=== PATIENT | male | born 1940 | race Two or more races ===

== ENCOUNTER 2021-08-14 09:05 | Emergency (ER) | payer MEDICAID, OTHER ==
[~2021-08-14] VITALS: Ht 162.6 cm; Wt 87.1 kg
[2021-08-14 09:51] VITALS: BP 142/69
[2021-08-14] MEDS ORDERED: CEPH500C PO (10:18)
[2021-08-14] MEDS ORDERED: CLOT1CRE13 VA (10:18)
== END 2021-08-14 10:50 | disposition home or self-care (01) ==
LOC: ER 09:05
DX: N48.1 Balanitis (principal); B37.9 Candidiasis, unspecified

== ENCOUNTER 2021-09-04 12:44 | Emergency (ER) | payer MEDICAID ==
[~2021-09-04] VITALS: Ht 162.6 cm; Wt 85.7 kg
[~2021-09-04 12:44] MED LIST: CEPH500C PO; CLOT1CRE13 VA
[2021-09-04 15:04] LABS: Basophils # (auto) 0.1 10 ^3/uL (0-0.2); Basophils % (auto) 0.7 % (0.0-2.0); Eosinophils # (auto) 0.1 10 ^3/uL (0-0.8); Hematocrit 39.3 % (41.0-53.0); Hemoglobin 12.9 g/dL (13.5-17.5); Lymphocytes # (auto) 2.8 10 ^3/uL (0.4-5.4); Lymphocytes % (auto) 30.1 % (10.0-50.0); Mean Corpuscular Hemoglobin 27.3 pg (28.0-32.0); Mean Corpuscular Hgb Conc. 32.8 g/dL (32.0-36.0); Mean Corpuscular Volume 83.4 fL (80.0-100.0); Monocytes # (auto) 0.7 10 ^3/uL (0-1.3); Neutrophils # (auto) 5.6 10 ^3/uL (1.6-8.6); Neutrophils % (auto) 60.2 % (37.0-80.0); Nucleated Red Blood Cells % 0.1 %; Red Blood Cells 4.71 10^6/uL (4.5-5.90); White Blood Cell 9.3 10^3/uL (4.4-10.8)
[2021-09-04 15:22] LABS: Urine Bacteria NONE SEEN /hpf (None Seen); Urine Blood 1+ /uL (Negative); Urine Specific Gravity 1.017 (1.001-1.035); Urine WBC 2 /hpf (0 - 3)
[2021-09-04 15:28] LABS: Albumin 3.5 g/dL (3.4-5.0); Calcium 8.7 mg/dL (8.5-10.1); Potassium 4.3 mmol/L (3.5-5.1)
[2021-09-04 15:34] LABS: BUN/Creatinine Ratio 11.2; Bilirubin, Total 0.4 mg/dL (0.2-1.0); Total Protein 7.8 g/dL (6.4-8.2)
[2021-09-04] MEDS ORDERED: KETOROLAC TROMETH 30 MG/ML 1ML VIAL IV ONE (15:45)
[2021-09-04] MEDS ORDERED: SODIUM CHLORIDE 0.9% 1,000 ML IV ONE (16:00)
[2021-09-04 17:01] VITALS: BP 151/60
[2021-09-04] MEDS ORDERED: InsuLIN REG 1unit/0.01ml Soln (100units/ml) SC ONE (17:30)
== END 2021-09-04 17:45 | disposition home or self-care (01) ==
LOC: ER 12:44
DX: R10.84 Generalized abdominal pain (principal); E11.65 Type 2 diabetes mellitus with hyperglycemia; I10 Essential (primary) hypertension
CPT/HCPCS: 36415; 74176; 80053; 81001; 83690; 85025; 87086; 96361; 96372; 96374; 99284; J1815; J1885; J7030

== ENCOUNTER 2021-10-22 14:52 | Inpatient (IN) | payer MEDICAID ==
[~2021-10-22] VITALS: Ht 162.6 cm; Wt 72.8 kg
[2021-10-22] MEDS ORDERED: ACETAMINOPHEN 325 MG TAB PO ONE (15:15)
[2021-10-22 15:46] LABS: Basophils # (auto) 0.1 10 ^3/uL (0-0.2); Basophils % (auto) 0.4 % (0.0-2.0); Eosinophils # (auto) 0 10 ^3/uL (0-0.8); Hematocrit 37.3 % (41.0-53.0); Hemoglobin 12.3 g/dL (13.5-17.5); Lymphocytes % (auto) 6.5 % (10.0-50.0); Mean Corpuscular Hemoglobin 26.9 pg (28.0-32.0); Mean Corpuscular Hgb Conc. 33.1 g/dL (32.0-36.0); Mean Corpuscular Volume 81.3 fL (80.0-100.0); Monocytes # (auto) 0.9 10 ^3/uL (0-1.3); Neutrophils # (auto) 13.1 10 ^3/uL (1.6-8.6); Neutrophils % (auto) 87.1 % (37.0-80.0); Red Blood Cells 4.59 10^6/uL (4.5-5.90); Red Cell Distribution Width 14.6 % (11.8-14.3); White Blood Cell 15.1 10^3/uL (4.4-10.8)
[2021-10-22 16:03] LABS: Albumin 2.8 g/dL (3.4-5.0); BUN/Creatinine Ratio 13.6; Calcium 8.4 mg/dL (8.5-10.1); Potassium 4.3 mmol/L (3.5-5.1)
[2021-10-22 16:06] LABS: Bilirubin, Total 0.5 mg/dL (0.2-1.0); Total Protein 7.8 g/dL (6.4-8.2)
[2021-10-22] MEDS ORDERED: PIPERACILLIN-TAZOB 3.375GM 100 ML IV ONE (17:30)
[2021-10-22] MEDS ORDERED: SODIUM CHLORIDE 0.9% 1,000 ML IV ONE (17:30)
[2021-10-22 17:34] LABS: Urine Bacteria NONE SEEN /hpf (None Seen); Urine Blood 1+ /uL (Negative); Urine Specific Gravity 1.021 (1.001-1.035); Urine WBC 5 /hpf (0 - 3)
[2021-10-22] MEDS ORDERED: DEXTROSE (50%) 50ML SYRG IV PRN (22:45)
[2021-10-22] MEDS ORDERED: ONDANSETRON HCL 4 MG/2 ML VIAL IV PRN (22:45)
[2021-10-22] MEDS ORDERED: hydrALAZINE HCL 10 MG TAB PO PRN (22:45)
[2021-10-22] MEDS: MORPHINE SULFATE INJ 2 MG/ml SYRG IV PRN (23:54)
[2021-10-23] MEDS: ACCU-CHEK COMFORT CURVE STRIP VI SCH ×4 (00:30→17:03)
[2021-10-23] MEDS ORDERED: HEPARIN SODIUM (PORCINE) 5000 UNITS/ML 1ML VIAL SC ONE (01:15)
[2021-10-23 02:21] VITALS: BP 136/47
[2021-10-23 05:00] VITALS: BP 100/34
[2021-10-23] MEDS: ACETAMINOPHEN 325 MG TAB PO PRN (05:10)
[2021-10-23] MEDS ORDERED: InsuLIN REG 1unit/0.01ml Soln (100units/ml) SC SCH (07:00)
[2021-10-23 07:01] LABS: Basophils # (auto) 0 10 ^3/uL (0-0.2); Basophils % (auto) 0.3 % (0.0-2.0); Eosinophils # (auto) 0 10 ^3/uL (0-0.8); Hematocrit 33.1 % (41.0-53.0); Hemoglobin 10.9 g/dL (13.5-17.5); Lymphocytes # (auto) 1.1 10 ^3/uL (0.4-5.4); Lymphocytes % (auto) 7.5 % (10.0-50.0); Mean Corpuscular Hemoglobin 27.1 pg (28.0-32.0); Mean Corpuscular Hgb Conc. 32.9 g/dL (32.0-36.0); Mean Corpuscular Volume 82.2 fL (80.0-100.0); Monocytes # (auto) 1.3 10 ^3/uL (0-1.3); Monocytes % (auto) 8.8 % (0.0-12.0); Neutrophils % (auto) 83.4 % (37.0-80.0); Red Blood Cells 4.03 10^6/uL (4.5-5.90); Red Cell Distribution Width 14.6 % (11.8-14.3); White Blood Cell 14.5 10^3/uL (4.4-10.8)
[2021-10-23 07:21] LABS: BUN/Creatinine Ratio 17.1; Calcium 7.9 mg/dL (8.5-10.1); Potassium 4.6 mmol/L (3.5-5.1)
[2021-10-23] MEDS ORDERED: SODIUM CHLORIDE 0.9% 500 ML IV ONE (07:30)
[2021-10-23 09:21] VITALS: BP 109/54
[2021-10-23] MEDS: FAMOTIDINE 20 MG TAB PO SCH (10:13)
[2021-10-23] MEDS: cefTRIAXone 1GM/50ML D5W 50 ML IV SCH (10:13)
[2021-10-23] MEDS: AZITHROMYCIN 500MG/ 250ML 250 ML IV SCH (10:13)
[2021-10-23] MEDS: ZINC SULFATE 220mg CAP or TAB PO SCH (10:14)
[2021-10-23] MEDS: ASCORBIC ACID 500 MG TAB PO SCH (10:14)
[2021-10-23] MEDS: CHOLECALCIFEROL (VITD3) 2,000 UNIT CAP/TAB PO SCH (10:14)
[2021-10-23] MEDS: HEPARIN SODIUM (PORCINE) 5000 UNITS/ML 1ML VIAL SC SCH ×2 (10:24→23:00)
[2021-10-23] MEDS: HYDROcodone-ACET 5/325MG TAB PO PRN (10:26)
[2021-10-23] MEDS ORDERED: INSULIN LANTUS (GLARGINE) 1 /0.01ml (100units/ml) SC ONE (12:15)
[2021-10-23 12:46] VITALS: BP 130/57
[2021-10-23] MEDS ORDERED: NITROGLYCERIN 0.4 MG SL TAB SL PRN (13:30)
[2021-10-23] MEDS: MORPHINE SULFATE INJ 2 MG/ml SYRG IV PRN (13:57)
[2021-10-23 16:48] VITALS: BP 136/57
[2021-10-23] MEDS: InsuLIN REG 1unit/0.01ml Soln (100units/ml) SC SCH (17:04)
[2021-10-23 22:39] VITALS: BP 113/47
[2021-10-23] MEDS: ATORVASTATIN 20 MG TAB PO SCH (23:19)
[2021-10-23 23:40] LABS: Cholesterol 127 mg/dL (< 200); Folate (Folic Acid) 5.01 ng/mL (5.38-24); Triglycerides 289 mg/dL (< 150)
[2021-10-23 23:42] LABS: HDL Cholesterol 12 mg/dL (40-59); LDL Cholesterol 62 mg/dL (< 100)
[2021-10-24] MEDS: INSULIN LANTUS (GLARGINE) 1 /0.01ml (100units/ml) SC SCH ×3 (01:07→23:00)
[2021-10-24 04:50] VITALS: BP 128/50
[2021-10-24 07:00] LABS: Basophils # (auto) 0.1 10 ^3/uL (0-0.2); Basophils % (auto) 0.4 % (0.0-2.0); Eosinophils # (auto) 0 10 ^3/uL (0-0.8); Eosinophils % (auto) 0.1 % (0.0-7.0); Hemoglobin 11.4 g/dL (13.5-17.5); Lymphocytes # (auto) 1.3 10 ^3/uL (0.4-5.4); Lymphocytes % (auto) 9.2 % (10.0-50.0); Mean Corpuscular Hemoglobin 27.2 pg (28.0-32.0); Mean Corpuscular Hgb Conc. 33.7 g/dL (32.0-36.0); Mean Corpuscular Volume 80.7 fL (80.0-100.0); Monocytes # (auto) 1.6 10 ^3/uL (0-1.3); Monocytes % (auto) 11.1 % (0.0-12.0); Neutrophils # (auto) 11.4 10 ^3/uL (1.6-8.6); Neutrophils % (auto) 79.2 % (37.0-80.0); Nucleated Red Blood Cells % 0.1 %; Red Blood Cells 4.21 10^6/uL (4.5-5.90); Red Cell Distribution Width 15.1 % (11.8-14.3); White Blood Cell 14.4 10^3/uL (4.4-10.8)
[2021-10-24] MEDS: ACCU-CHEK COMFORT CURVE STRIP VI SCH ×4 (07:02→22:39)
[2021-10-24] MEDS: InsuLIN REG 1unit/0.01ml Soln (100units/ml) SC SCH ×3 (07:04→18:33)
[2021-10-24 07:18] LABS: Potassium 4.1 mmol/L (3.5-5.1)
[2021-10-24 07:25] LABS: Calcium 8.2 mg/dL (8.5-10.1)
[2021-10-24 08:00] VITALS: BP 112/44
[2021-10-24] MEDS: AZITHROMYCIN 500MG/ 250ML 250 ML IV SCH (08:53)
[2021-10-24] MEDS: cefTRIAXone 1GM/50ML D5W 50 ML IV SCH (08:53)
[2021-10-24] MEDS: CHOLECALCIFEROL (VITD3) 2,000 UNIT CAP/TAB PO SCH (08:54)
[2021-10-24] MEDS: ASCORBIC ACID 500 MG TAB PO SCH (08:55)
[2021-10-24] MEDS: ZINC SULFATE 220mg CAP or TAB PO SCH (08:55)
[2021-10-24] MEDS: ASPirin 81 mg TAB PO SCH (08:55)
[2021-10-24] MEDS: FAMOTIDINE 20 MG TAB PO SCH (08:55)
[2021-10-24] MEDS: HEPARIN SODIUM (PORCINE) 5000 UNITS/ML 1ML VIAL SC SCH ×2 (09:14→22:45)
[2021-10-24] MEDS ORDERED: INSULIN LANTUS (GLARGINE) 1 /0.01ml (100units/ml) SC SCH (10:00)
[2021-10-24] MEDS ORDERED: INSULIN LANTUS (GLARGINE) 1 /0.01ml (100units/ml) SC ONE (11:15)
[2021-10-24 12:00] VITALS: BP 112/46
[2021-10-24] MEDS: MORPHINE SULFATE INJ 2 MG/ml SYRG IV PRN (13:05)
[2021-10-24 16:00] VITALS: BP 161/52
[2021-10-24] MEDS ORDERED: CYANOCOBALAMIN (B-12) 1000 MCG/1 ML VIAL IM ONE (19:30)
[2021-10-24] MEDS: ATORVASTATIN 20 MG TAB PO SCH (22:39)
[2021-10-25 05:00] VITALS: BP 135/56
[2021-10-25] MEDS: MORPHINE SULFATE INJ 2 MG/ml SYRG IV PRN (05:00)
[2021-10-25] MEDS: ACETAMINOPHEN 325 MG TAB PO PRN (06:31)
[2021-10-25] MEDS: ACCU-CHEK COMFORT CURVE STRIP VI SCH ×4 (06:33→23:47)
[2021-10-25] MEDS: INSULIN LANTUS (GLARGINE) 1 /0.01ml (100units/ml) SC SCH ×2 (06:46→23:50)
[2021-10-25] MEDS: InsuLIN REG 1unit/0.01ml Soln (100units/ml) SC SCH ×3 (06:47→18:33)
[2021-10-25 07:32] LABS: Basophils # (auto) 0.1 10 ^3/uL (0-0.2); Basophils % (auto) 0.4 % (0.0-2.0); Eosinophils # (auto) 0 10 ^3/uL (0-0.8); Eosinophils % (auto) 0.1 % (0.0-7.0); Hematocrit 32.6 % (41.0-53.0); Mean Corpuscular Hgb Conc. 33.7 g/dL (32.0-36.0); Monocytes # (auto) 1.5 10 ^3/uL (0-1.3); Neutrophils # (auto) 12.9 10 ^3/uL (1.6-8.6); Neutrophils % (auto) 78.5 % (37.0-80.0); Nucleated Red Blood Cells % 0.1 %; Red Blood Cells 4.07 10^6/uL (4.5-5.90); Red Cell Distribution Width 14.5 % (11.8-14.3); White Blood Cell 16.4 10^3/uL (4.4-10.8)
[2021-10-25 07:43] LABS: Calcium 8.2 mg/dL (8.5-10.1); Potassium 3.5 mmol/L (3.5-5.1)
[2021-10-25 08:00] VITALS: BP 132/56
[2021-10-25] MEDS: ZINC SULFATE 220mg CAP or TAB PO SCH (08:27)
[2021-10-25] MEDS: CYANOCOBALAMIN 500 MCG TAB PO SCH (08:27)
[2021-10-25] MEDS: ASCORBIC ACID 500 MG TAB PO SCH (08:27)
[2021-10-25] MEDS: FAMOTIDINE 20 MG TAB PO SCH (08:27)
[2021-10-25] MEDS: cefTRIAXone 1GM/50ML D5W 50 ML IV SCH (08:27)
[2021-10-25] MEDS: ASPirin 81 mg TAB PO SCH (08:27)
[2021-10-25] MEDS: CHOLECALCIFEROL (VITD3) 2,000 UNIT CAP/TAB PO SCH (08:27)
[2021-10-25] MEDS: AZITHROMYCIN 500MG/ 250ML 250 ML IV SCH (08:28)
[2021-10-25] MEDS: HEPARIN SODIUM (PORCINE) 5000 UNITS/ML 1ML VIAL SC SCH ×2 (08:40→23:49)
[2021-10-25 09:00] VITALS: BP 132/56
[2021-10-25] MEDS: FOLIC ACID 1 MG in D5W 5% 50 ML INJ SCH (11:50)
[2021-10-25 12:31] LABS: Creatinine, Urine 87 mg/dL (30.0-125.0); Sodium Urine 23 mmol/L (40-220)
[2021-10-25 12:33] LABS: Protein, Urine 133.2 mg/dL (0.0-11.9)
[2021-10-25 13:00] VITALS: BP 136/66
[2021-10-25 17:00] VITALS: BP 136/50
[2021-10-25 22:00] VITALS: BP 108/57
[2021-10-25] MEDS: ATORVASTATIN 20 MG TAB PO SCH (23:47)
[2021-10-26] MEDS: InsuLIN REG 1unit/0.01ml Soln (100units/ml) SC SCH ×3 (06:25→17:41)
[2021-10-26] MEDS: ACCU-CHEK COMFORT CURVE STRIP VI SCH ×4 (06:26→23:00)
[2021-10-26] MEDS: INSULIN LANTUS (GLARGINE) 1 /0.01ml (100units/ml) SC SCH ×2 (06:26→23:00)
[2021-10-26] MEDS: ACETAMINOPHEN 325 MG TAB PO PRN (06:37)
[2021-10-26 08:00] VITALS: BP 132/56
[2021-10-26 09:00] VITALS: BP 132/56
[2021-10-26] MEDS: cefTRIAXone 1GM/50ML D5W 50 ML IV SCH (09:06)
[2021-10-26] MEDS: FAMOTIDINE 20 MG TAB PO SCH (09:10)
[2021-10-26] MEDS: ZINC SULFATE 220mg CAP or TAB PO SCH (09:10)
[2021-10-26] MEDS: ASCORBIC ACID 500 MG TAB PO SCH (09:10)
[2021-10-26] MEDS: ASPirin 81 mg TAB PO SCH (09:10)
[2021-10-26] MEDS: CYANOCOBALAMIN 500 MCG TAB PO SCH (09:12)
[2021-10-26] MEDS: CHOLECALCIFEROL (VITD3) 2,000 UNIT CAP/TAB PO SCH (09:12)
[2021-10-26] MEDS: HEPARIN SODIUM (PORCINE) 5000 UNITS/ML 1ML VIAL SC SCH ×2 (11:27→23:00)
[2021-10-26] MEDS: AZITHROMYCIN 500MG/ 250ML 250 ML IV SCH (11:29)
[2021-10-26] MEDS: FOLIC ACID 1 MG in D5W 5% 50 ML INJ SCH (11:30)
[2021-10-26] MEDS: HYDROcodone-ACET 5/325MG TAB PO PRN (12:55)
[2021-10-26 13:00] VITALS: BP 144/56
[2021-10-26 17:00] VITALS: BP 139/68
[2021-10-26 18:33] LABS: Red Cell Distribution Width 14.9 % (11.8-14.3)
[2021-10-26 18:40] LABS: Hematocrit 32.3 % (41.0-53.0); Mean Corpuscular Hemoglobin 27.4 pg (28.0-32.0); Mean Corpuscular Hgb Conc. 34.1 g/dL (32.0-36.0); Mean Corpuscular Volume 80.3 fL (80.0-100.0); Red Blood Cells 4.03 10^6/uL (4.5-5.90)
[2021-10-26 18:49] LABS: Calcium 8.7 mg/dL (8.5-10.1); Potassium 3.9 mmol/L (3.5-5.1)
[2021-10-26 18:50] LABS: BUN/Creatinine Ratio 17.7
[2021-10-26 18:51] LABS: Basophils % (manual) 0 (0.0-2.0); Blast Cells 0; Eosinophils % (manual) 0 (0-7); Myelocytes % 0; Promyelocytes % 0; Reactive Lymphocytes 0
[2021-10-26 19:40] LABS: Band Neutrophils % (manual) 6; Lymphocytes % (manual) 12 (10.0-50.0); Metamyelocytes % 2; Monocytes % (manual) 9 (0-12)
[2021-10-26 22:00] VITALS: BP 150/59
[2021-10-26] MEDS: ATORVASTATIN 20 MG TAB PO SCH (23:00)
[2021-10-27] MEDS: HYDROcodone-ACET 5/325MG TAB PO PRN (00:06)
[2021-10-27 05:00] VITALS: BP 140/68
[2021-10-27 05:49] LABS: Hematocrit 31.5 % (41.0-53.0); Hemoglobin 10.7 g/dL (13.5-17.5); Mean Corpuscular Hemoglobin 27.2 pg (28.0-32.0); Mean Corpuscular Hgb Conc. 33.9 g/dL (32.0-36.0); Mean Corpuscular Volume 80.2 fL (80.0-100.0); Red Blood Cells 3.93 10^6/uL (4.5-5.90); Red Cell Distribution Width 15.2 % (11.8-14.3); White Blood Cell 19.6 10^3/uL (4.4-10.8)
[2021-10-27 05:56] LABS: Basophils % (manual) 0 (0.0-2.0); Blast Cells 0; Eosinophils % (manual) 0 (0-7); Metamyelocytes % 0; Myelocytes % 0; Promyelocytes % 0; Reactive Lymphocytes 0
[2021-10-27 06:05] LABS: BUN/Creatinine Ratio 17.1; Calcium 8.5 mg/dL (8.5-10.1); Potassium 3.4 mmol/L (3.5-5.1)
[2021-10-27] MEDS: ACCU-CHEK COMFORT CURVE STRIP VI SCH ×4 (06:40→22:00)
[2021-10-27] MEDS: INSULIN LANTUS (GLARGINE) 1 /0.01ml (100units/ml) SC SCH ×2 (06:57→22:00)
[2021-10-27] MEDS: InsuLIN REG 1unit/0.01ml Soln (100units/ml) SC SCH ×3 (06:58→17:00)
[2021-10-27 08:42] LABS: Band Neutrophils % (manual) 2; Lymphocytes % (manual) 18 (10.0-50.0); Monocytes % (manual) 5 (0-12)
[2021-10-27 09:00] VITALS: BP 131/66
[2021-10-27] MEDS: HEPARIN SODIUM (PORCINE) 5000 UNITS/ML 1ML VIAL SC SCH (10:00)
[2021-10-27] MEDS ORDERED: ceFAZolin 2 GM in D5W 5% 100 ML IV STA ×2 (10:21→10:27)
[2021-10-27] MEDS: CHOLECALCIFEROL (VITD3) 2,000 UNIT CAP/TAB PO SCH (11:13)
[2021-10-27] MEDS: ASCORBIC ACID 500 MG TAB PO SCH (11:13)
[2021-10-27] MEDS: FAMOTIDINE 20 MG TAB PO SCH (11:13)
[2021-10-27] MEDS: ZINC SULFATE 220mg CAP or TAB PO SCH (11:13)
[2021-10-27] MEDS: CYANOCOBALAMIN 500 MCG TAB PO SCH (11:14)
[2021-10-27] MEDS: ASPirin 81 mg TAB PO SCH (11:14)
[2021-10-27] MEDS: FUROSEMIDE 40 MG TAB PO SCH (12:34)
[2021-10-27] MEDS: FOLIC ACID 1 MG in D5W 5% 50 ML INJ SCH (12:35)
[2021-10-27 13:24] VITALS: BP 140/59
[2021-10-27] MEDS: ceFAZolin 2 GM in D5W 5% 100 ML IV SCH ×2 (14:49→22:00)
[2021-10-27 17:00] VITALS: BP 148/57
[2021-10-27] MEDS ORDERED: POTASSIUM CHL 20MEQ/100ML 100 ML IV ONE (17:00)
[2021-10-27] MEDS ORDERED: IOHEXOL 350 MG/ML 100ML IJ ONE (18:04)
[2021-10-27 22:00] VITALS: BP 135/62
[2021-10-27] MEDS: ATORVASTATIN 20 MG TAB PO SCH (22:00)
[2021-10-28 05:00] VITALS: BP 139/62
[2021-10-28 06:10] LABS: Hematocrit 30.6 % (41.0-53.0); Hemoglobin 10.3 g/dL (13.5-17.5); Mean Corpuscular Hgb Conc. 33.6 g/dL (32.0-36.0); Mean Corpuscular Volume 80.1 fL (80.0-100.0); Red Blood Cells 3.82 10^6/uL (4.5-5.90); White Blood Cell 15.6 10^3/uL (4.4-10.8)
[2021-10-28] MEDS: ceFAZolin 2 GM in D5W 5% 100 ML IV SCH ×3 (06:17→22:00)
[2021-10-28] MEDS: InsuLIN REG 1unit/0.01ml Soln (100units/ml) SC SCH ×3 (06:17→17:00)
[2021-10-28] MEDS: ACCU-CHEK COMFORT CURVE STRIP VI SCH ×4 (06:18→22:00)
[2021-10-28 06:27] LABS: BUN/Creatinine Ratio 17.6; Calcium 8.8 mg/dL (8.5-10.1); Potassium 3.6 mmol/L (3.5-5.1)
[2021-10-28] MEDS: INSULIN LANTUS (GLARGINE) 1 /0.01ml (100units/ml) SC SCH ×2 (06:38→22:00)
[2021-10-28 06:48] LABS: Basophils % (manual) 0 (0.0-2.0); Blast Cells 0; Eosinophils % (manual) 0 (0-7); Promyelocytes % 0; Reactive Lymphocytes 0
[2021-10-28 07:54] LABS: Band Neutrophils % (manual) 2; Lymphocytes % (manual) 22 (10.0-50.0); Metamyelocytes % 1; Monocytes % (manual) 3 (0-12); Myelocytes % 1
[2021-10-28 09:00] VITALS: BP 182/72
[2021-10-28] MEDS: FOLIC ACID 1 MG in D5W 5% 50 ML INJ SCH (12:43)
[2021-10-28] MEDS: ASCORBIC ACID 500 MG TAB PO SCH (12:44)
[2021-10-28] MEDS: CYANOCOBALAMIN 500 MCG TAB PO SCH (12:44)
[2021-10-28] MEDS: CHOLECALCIFEROL (VITD3) 2,000 UNIT CAP/TAB PO SCH (12:44)
[2021-10-28] MEDS: ZINC SULFATE 220mg CAP or TAB PO SCH (12:44)
[2021-10-28] MEDS: FUROSEMIDE 40 MG TAB PO SCH (12:45)
[2021-10-28] MEDS: ENOXAPARIN SOD 40 MG/0.4 ML SYRINGE SC SCH (12:45)
[2021-10-28 13:01] VITALS: BP 181/74
[2021-10-28 17:00] VITALS: BP 156/73
[2021-10-28 22:00] VITALS: BP 131/57
[2021-10-28] MEDS: ATORVASTATIN 20 MG TAB PO SCH (22:00)
[2021-10-29 04:52] LABS: Basophils # (auto) 0.1 10 ^3/uL (0-0.2); Eosinophils # (auto) 0.1 10 ^3/uL (0-0.8); Nucleated Red Blood Cells % 0.1 %
[2021-10-29 04:53] LABS: Basophils % (auto) 0.6 % (0.0-2.0); Eosinophils % (auto) 0.8 % (0.0-7.0); Hematocrit 32.4 % (41.0-53.0); Hemoglobin 10.9 g/dL (13.5-17.5); Lymphocytes # (auto) 2.5 10 ^3/uL (0.4-5.4); Lymphocytes % (auto) 20.9 % (10.0-50.0); Mean Corpuscular Hgb Conc. 33.8 g/dL (32.0-36.0); Monocytes # (auto) 1.2 10 ^3/uL (0-1.3); Monocytes % (auto) 10.1 % (0.0-12.0); Neutrophils % (auto) 67.6 % (37.0-80.0); Red Blood Cells 4.05 10^6/uL (4.5-5.90); Red Cell Distribution Width 15.2 % (11.8-14.3); White Blood Cell 11.8 10^3/uL (4.4-10.8)
[2021-10-29 05:00] VITALS: BP 130/56
[2021-10-29 05:10] LABS: BUN/Creatinine Ratio 18.2; Calcium 8.8 mg/dL (8.5-10.1); Potassium 3.9 mmol/L (3.5-5.1)
[2021-10-29] MEDS: ceFAZolin 2 GM in D5W 5% 100 ML IV SCH ×3 (06:30→22:30)
[2021-10-29] MEDS: ACCU-CHEK COMFORT CURVE STRIP VI SCH ×4 (07:02→22:48)
[2021-10-29] MEDS: INSULIN LANTUS (GLARGINE) 1 /0.01ml (100units/ml) SC SCH ×2 (07:03→22:52)
[2021-10-29] MEDS: InsuLIN REG 1unit/0.01ml Soln (100units/ml) SC SCH ×3 (07:04→17:24)
[2021-10-29 09:12] VITALS: BP 116/60
[2021-10-29] MEDS: ENOXAPARIN SOD 40 MG/0.4 ML SYRINGE SC SCH ×2 (10:30→14:43)
[2021-10-29] MEDS: ASCORBIC ACID 500 MG TAB PO SCH (10:30)
[2021-10-29] MEDS: ZINC SULFATE 220mg CAP or TAB PO SCH (10:30)
[2021-10-29] MEDS: CHOLECALCIFEROL (VITD3) 2,000 UNIT CAP/TAB PO SCH (10:31)
[2021-10-29] MEDS: CYANOCOBALAMIN 500 MCG TAB PO SCH (10:31)
[2021-10-29] MEDS: FUROSEMIDE 40 MG TAB PO SCH (10:31)
[2021-10-29] MEDS: FOLIC ACID 1 MG in D5W 5% 50 ML INJ SCH (10:32)
[2021-10-29 13:00] VITALS: BP 139/66
[2021-10-29 16:54] VITALS: BP 148/72
[2021-10-29 22:00] VITALS: BP 131/65
[2021-10-29] MEDS ORDERED: DAKINS QUARTER STR 0.125% (NaHypochlorite) 473 ML TOPICAL SOL TOP SCH (22:00)
[2021-10-29] MEDS: ATORVASTATIN 20 MG TAB PO SCH (22:48)
[2021-10-30 05:00] VITALS: BP 141/64
[2021-10-30] MEDS: ceFAZolin 2 GM in D5W 5% 100 ML IV SCH ×3 (06:00→22:14)
[2021-10-30] MEDS: InsuLIN REG 1unit/0.01ml Soln (100units/ml) SC SCH ×3 (07:00→19:20)
[2021-10-30] MEDS: ACCU-CHEK COMFORT CURVE STRIP VI SCH ×4 (07:07→22:14)
[2021-10-30] MEDS: INSULIN LANTUS (GLARGINE) 1 /0.01ml (100units/ml) SC SCH ×2 (07:08→22:38)
[2021-10-30 09:00] VITALS: BP 108/77
[2021-10-30] MEDS: ENOXAPARIN SOD 40 MG/0.4 ML SYRINGE SC SCH (10:55)
[2021-10-30] MEDS: ZINC SULFATE 220mg CAP or TAB PO SCH (10:55)
[2021-10-30] MEDS: ASCORBIC ACID 500 MG TAB PO SCH (10:56)
[2021-10-30] MEDS: CYANOCOBALAMIN 500 MCG TAB PO SCH (10:56)
[2021-10-30] MEDS: FUROSEMIDE 40 MG TAB PO SCH (10:57)
[2021-10-30] MEDS: CHOLECALCIFEROL (VITD3) 2,000 UNIT CAP/TAB PO SCH (10:57)
[2021-10-30] MEDS: FOLIC ACID 1 MG in D5W 5% 50 ML INJ SCH (10:58)
[2021-10-30 12:47] VITALS: BP 114/52
[2021-10-30 16:56] VITALS: BP 137/75
[2021-10-30] MEDS: DAKINS HALF STR 0.25% (NaHypochlorite) 473 ML TOPICAL SOL TOP SCH (22:00)
[2021-10-30] MEDS: ATORVASTATIN 20 MG TAB PO SCH (22:14)
[2021-10-30 22:26] VITALS: BP 144/65
[2021-10-31 05:28] VITALS: BP 101/56
[2021-10-31] MEDS: HYDROcodone-ACET 5/325MG TAB PO PRN (05:53)
[2021-10-31] MEDS: ceFAZolin 2 GM in D5W 5% 100 ML IV SCH ×3 (05:53→23:01)
[2021-10-31] MEDS: ACCU-CHEK COMFORT CURVE STRIP VI SCH ×4 (06:50→22:00)
[2021-10-31] MEDS: InsuLIN REG 1unit/0.01ml Soln (100units/ml) SC SCH ×3 (06:50→18:00)
[2021-10-31] MEDS: INSULIN LANTUS (GLARGINE) 1 /0.01ml (100units/ml) SC SCH ×2 (06:51→22:00)
[2021-10-31 08:00] VITALS: BP 110/55
[2021-10-31] MEDS: ZINC SULFATE 220mg CAP or TAB PO SCH (11:27)
[2021-10-31] MEDS: CHOLECALCIFEROL (VITD3) 2,000 UNIT CAP/TAB PO SCH (11:27)
[2021-10-31] MEDS: FUROSEMIDE 40 MG TAB PO SCH (11:27)
[2021-10-31] MEDS: ASCORBIC ACID 500 MG TAB PO SCH (11:27)
[2021-10-31] MEDS: ENOXAPARIN SOD 40 MG/0.4 ML SYRINGE SC SCH (11:27)
[2021-10-31] MEDS: CYANOCOBALAMIN 500 MCG TAB PO SCH (11:27)
[2021-10-31] MEDS: FOLIC ACID 1 MG in D5W 5% 50 ML INJ SCH (11:37)
[2021-10-31 12:00] VITALS: BP 143/61
[2021-10-31 15:52] LABS: Hemoglobin 11.2 g/dL (13.5-17.5)
[2021-10-31 15:58] LABS: INR 1.07 (0.9-1.15)
[2021-10-31 16:00] VITALS: BP 135/54
[2021-10-31 16:03] LABS: Hematocrit 34.3 % (41.0-53.0); Mean Corpuscular Hemoglobin 26.4 pg (28.0-32.0); Mean Corpuscular Hgb Conc. 32.6 g/dL (32.0-36.0); Mean Corpuscular Volume 80.8 fL (80.0-100.0); Red Blood Cells 4.25 10^6/uL (4.5-5.90); White Blood Cell 14.7 10^3/uL (4.4-10.8)
[2021-10-31] MEDS ORDERED: FURO40TA4 PO (16:05)
[2021-10-31] MEDS ORDERED: FOLI1TAB6 PO (16:05)
[2021-10-31] MEDS ORDERED: CYAN500T3 PO (16:05)
[2021-10-31] MEDS ORDERED: INSLANTI SC (16:05)
[2021-10-31] MEDS ORDERED: BLOO-200 XX (16:05)
[2021-10-31] MEDS ORDERED: INSU100I2 SC (16:05)
[2021-10-31 16:06] LABS: Basophils % (manual) 0 (0.0-2.0); Blast Cells 0; Eosinophils % (manual) 0 (0-7); Myelocytes % 0; Reactive Lymphocytes 0
[2021-10-31 16:52] LABS: Band Neutrophils % (manual) 9; Lymphocytes % (manual) 21 (10.0-50.0); Metamyelocytes % 1; Monocytes % (manual) 9 (0-12); Promyelocytes % 2
[2021-10-31] MEDS: DAKINS HALF STR 0.25% (NaHypochlorite) 473 ML TOPICAL SOL TOP SCH ×2 (18:09→22:00)
[2021-10-31 19:05] LABS: BUN/Creatinine Ratio 19.6; Calcium 10.1 mg/dL (8.5-10.1); Potassium 4.3 mmol/L (3.5-5.1)
[2021-10-31 22:00] VITALS: BP 119/68
[2021-10-31] MEDS: ATORVASTATIN 20 MG TAB PO SCH (23:01)
[2021-11-01 05:00] VITALS: BP 111/59
[2021-11-01] MEDS: ceFAZolin 2 GM in D5W 5% 100 ML IV SCH ×3 (05:58→21:53)
[2021-11-01] MEDS: ACCU-CHEK COMFORT CURVE STRIP VI SCH ×4 (06:18→21:54)
[2021-11-01] MEDS: INSULIN LANTUS (GLARGINE) 1 /0.01ml (100units/ml) SC SCH ×2 (06:24→21:53)
[2021-11-01] MEDS: InsuLIN REG 1unit/0.01ml Soln (100units/ml) SC SCH ×3 (06:24→16:38)
[2021-11-01 09:00] VITALS: BP 106/56
[2021-11-01] MEDS ORDERED: LIDOCAINE 1% (LOCAL ANESTH.) PF 5ml SDV ID ONE (10:30)
[2021-11-01] MEDS: CYANOCOBALAMIN 500 MCG TAB PO SCH (10:47)
[2021-11-01] MEDS: ZINC SULFATE 220mg CAP or TAB PO SCH (10:47)
[2021-11-01] MEDS: ASCORBIC ACID 500 MG TAB PO SCH (10:47)
[2021-11-01] MEDS: FUROSEMIDE 40 MG TAB PO SCH (10:48)
[2021-11-01] MEDS: CHOLECALCIFEROL (VITD3) 2,000 UNIT CAP/TAB PO SCH (10:48)
[2021-11-01] MEDS: DAKINS HALF STR 0.25% (NaHypochlorite) 473 ML TOPICAL SOL TOP SCH ×2 (10:48→21:54)
[2021-11-01] MEDS: FOLIC ACID 1 MG in D5W 5% 50 ML INJ SCH (10:48)
[2021-11-01] MEDS: ENOXAPARIN SOD 40 MG/0.4 ML SYRINGE SC SCH (10:49)
[2021-11-01] MEDS ORDERED: CHOL1CAP47 PO (12:38)
[2021-11-01 13:03] VITALS: BP 135/60
[2021-11-01 17:01] VITALS: BP 137/65
[2021-11-01] MEDS: SODIUM CHLOR 0.9% PF (SALINE LOCK) 10ML VIAL/SYR IV SCH (21:54)
[2021-11-01] MEDS: ATORVASTATIN 20 MG TAB PO SCH (21:54)
[2021-11-01 21:58] VITALS: BP 126/62
[2021-11-02 04:58] VITALS: BP 130/60
[2021-11-02] MEDS: ceFAZolin 2 GM in D5W 5% 100 ML IV SCH ×2 (06:29→13:15)
[2021-11-02] MEDS: INSULIN LANTUS (GLARGINE) 1 /0.01ml (100units/ml) SC SCH (06:29)
[2021-11-02] MEDS: ACCU-CHEK COMFORT CURVE STRIP VI SCH ×2 (06:29→12:10)
[2021-11-02] MEDS: InsuLIN REG 1unit/0.01ml Soln (100units/ml) SC SCH ×2 (06:30→12:12)
[2021-11-02 09:00] VITALS: BP 120/52
[2021-11-02] MEDS: ENOXAPARIN SOD 40 MG/0.4 ML SYRINGE SC SCH (09:17)
[2021-11-02] MEDS: FOLIC ACID 1 MG in D5W 5% 50 ML INJ SCH (09:17)
[2021-11-02] MEDS: CYANOCOBALAMIN 500 MCG TAB PO SCH (09:18)
[2021-11-02] MEDS: CHOLECALCIFEROL (VITD3) 2,000 UNIT CAP/TAB PO SCH (09:18)
[2021-11-02] MEDS: ZINC SULFATE 220mg CAP or TAB PO SCH (09:18)
[2021-11-02] MEDS: FUROSEMIDE 40 MG TAB PO SCH (09:18)
[2021-11-02] MEDS: ASCORBIC ACID 500 MG TAB PO SCH (09:18)
[2021-11-02] MEDS: SODIUM CHLOR 0.9% PF (SALINE LOCK) 10ML VIAL/SYR IV SCH (09:18)
[2021-11-02] MEDS: DAKINS HALF STR 0.25% (NaHypochlorite) 473 ML TOPICAL SOL TOP SCH (09:19)
[2021-11-02 10:33] VITALS: BP 120/52
[2021-11-02 13:00] VITALS: BP 130/65
== END 2021-11-02 16:28 | disposition home health service (06) | DRG 720 ==
LOC: ER 14:52 → EDBD 14:52 → TELE 22:38 → TELE-EAST 23:47
PROVIDERS: ADMIT Nurse Practitioner Family; ATTEND Nurse Practitioner Family
PROC: 0Y9L0ZZ Drainage of Left Ankle Region, Open Approach (ICD-10-PCS; principal; 2021-10-30)
PROC: 05H933Z Insertion of Infusion Device into Right Brachial Vein, Percutaneous Approach (ICD-10-PCS; 2021-11-01)
PROC: B54MZZA Ultrasonography of Right Upper Extremity Veins, Guidance (ICD-10-PCS; 2021-11-01)
DX: A41.9 Sepsis, unspecified organism (principal); N17.0 Acute kidney failure with tubular necrosis; J12.82 Pneumonia due to coronavirus disease 2019; U07.1 COVID-19; L02.416 Cutaneous abscess of left lower limb; E87.1 Hypo-osmolality and hyponatremia; L03.116 Cellulitis of left lower limb; G92.8 Other toxic encephalopathy; E11.65 Type 2 diabetes mellitus with hyperglycemia; B95.61 Methicillin susceptible Staphylococcus aureus infection as the cause of diseases classified elsewhere; E66.9 Obesity, unspecified; E78.5 Hyperlipidemia, unspecified; I12.9 Hypertensive chronic kidney disease with stage 1 through stage 4 chronic kidney disease, or unspecified chronic kidney disease; N18.9 Chronic kidney disease, unspecified; N39.0 Urinary tract infection, site not specified; Z68.31 Body mass index [BMI] 31.0-31.9, adult; I48.91 Unspecified atrial fibrillation; J98.11 Atelectasis; E11.69 Type 2 diabetes mellitus with other specified complication; E53.8 Deficiency of other specified B group vitamins; L97.329 Non-pressure chronic ulcer of left ankle with unspecified severity; E11.22 Type 2 diabetes mellitus with diabetic chronic kidney disease; R79.89 Other specified abnormal findings of blood chemistry; M86.8X7 Other osteomyelitis, ankle and foot; E55.9 Vitamin D deficiency, unspecified; Z79.82 Long term (current) use of aspirin; Z91.81 History of falling; Z79.899 Other long term (current) drug therapy; Z86.73 Personal history of transient ischemic attack (TIA), and cerebral infarction without residual deficits; Z79.84 Long term (current) use of oral hypoglycemic drugs
CPT/HCPCS: 36415; 36569; 70450; 71045; 71275; 73610; 73700; 76775; 80048; 80053; 80061; 81001; 82306; 82570; 82607; 82746; 82962; 83036; 83090; 83605; 83930; 83935; 83970; 84100; 84156; 84300; 84443; 84484; 85007; 85025; 85027; 85379; 85610; 85652; 85730; 86141; 87040; 87077; 87081; 87086; 87088; 87186; 87205; 93005; 93306; 93925; 93971; 95819; 96365; 96372; 96375; 97110; 97116; 97530; 99291; G0378; J0690; J0696; J1815; J2405; J2543; J3480; J7060

== ENCOUNTER 2021-11-13 09:49 | Inpatient (IN) | payer MEDICAID ==
[~2021-11-13] VITALS: Ht 167.6 cm; Wt 80.1 kg
[~2021-11-13 09:49] MED LIST changes: +BLOO-200 XX; -CEPH500C PO; +CHOL1CAP47 PO; -CLOT1CRE13 VA; +CYAN500T3 PO; +FOLI1TAB6 PO; +FURO40TA4 PO; +INSLANTI SC; +INSU100I2 SC
[2021-11-13] MEDS ORDERED: ONDANSETRON HCL 4 MG/2 ML VIAL IV ONE (12:00)
[2021-11-13 12:14] LABS: Basophils # (auto) 0.1 10 ^3/uL (0-0.2); Basophils % (auto) 1.2 % (0.0-2.0); Eosinophils # (auto) 0.1 10 ^3/uL (0-0.8); Eosinophils % (auto) 1.3 % (0.0-7.0); Hematocrit 37.9 % (41.0-53.0); Hemoglobin 12.4 g/dL (13.5-17.5); Lymphocytes # (auto) 2.4 10 ^3/uL (0.4-5.4); Lymphocytes % (auto) 35.9 % (10.0-50.0); Mean Corpuscular Hemoglobin 27.1 pg (28.0-32.0); Mean Corpuscular Hgb Conc. 32.7 g/dL (32.0-36.0); Mean Corpuscular Volume 82.7 fL (80.0-100.0); Monocytes # (auto) 0.6 10 ^3/uL (0-1.3); Monocytes % (auto) 8.4 % (0.0-12.0); Neutrophils # (auto) 3.5 10 ^3/uL (1.6-8.6); Neutrophils % (auto) 53.2 % (37.0-80.0); Nucleated Red Blood Cells % 0.1 %; Red Blood Cells 4.58 10^6/uL (4.5-5.90); White Blood Cell 6.6 10^3/uL (4.4-10.8)
[2021-11-13 12:32] LABS: Albumin 2.5 g/dL (3.4-5.0); Anion Gap 9 (5-15); Blood Urea Nitrogen 16 mg/dL (7-18); Calcium 8.6 mg/dL (8.5-10.1); Carbon Dioxide 23 mmol/L (21-32); Chloride 101 mmol/L (98-107); Glucose 128 mg/dL (74-106); Potassium 4.5 mmol/L (3.5-5.1); Sodium 133 mmol/L (136-145)
[2021-11-13 12:37] LABS: Alanine Aminotransferase < 6 U/L (16-61); Alkaline Phosphatase 74 U/L (45-117); Aspartate Aminotransferase 15 U/L (15-37); BUN/Creatinine Ratio 9.5; Bilirubin, Total 0.4 mg/dL (0.2-1.0); GFR African American 51 mL/min; GFR Non-African American 42 mL/min; Total Protein 8.3 g/dL (6.4-8.2)
[2021-11-13] MEDS ORDERED: PIPERACILLIN-TAZOB 3.375GM 100 ML IV ONE (15:00)
[2021-11-13] MEDS ORDERED: VANCOMYCIN 1GM/250ML 250 ML IV ONE ×2 (15:00→19:00)
[2021-11-13] MEDS ORDERED: DEXTROSE (50%) 50ML SYRG IV PRN (18:30)
[2021-11-13] MEDS ORDERED: VANCOMYCIN PER PHARMACY 0 MG IV SCH (18:30)
[2021-11-13] MEDS ORDERED: ACETAMINOPHEN 325 MG TAB PO PRN (18:30)
[2021-11-13] MEDS ORDERED: VANCOMYCIN 1GM/250ML 250 ML IV SCH (19:00)
[2021-11-13] MEDS: ACCU-CHEK COMFORT CURVE STRIP VI SCH (22:00)
[2021-11-14] VITALS (7 sets, daily range): BP systolic 91–155; BP diastolic 61–83
[2021-11-14] MEDS: ASCORBIC ACID 500 MG TAB PO SCH ×3 (00:27→21:21)
[2021-11-14] MEDS: ONDANSETRON HCL 4 MG/2 ML VIAL IV PRN ×2 (00:28→06:56)
[2021-11-14] MEDS: MORPHINE SULFATE INJ 2 MG/ml SYRG IV PRN (00:28)
[2021-11-14] MEDS: InsuLIN REG 1unit/0.01ml Soln (100units/ml) SC SCH ×5 (00:43→21:24)
[2021-11-14] MEDS: INSULIN LANTUS (GLARGINE) 1 /0.01ml (100units/ml) SC SCH ×3 (00:44→21:23)
[2021-11-14 06:13] LABS: Basophils # (auto) 0.1 10 ^3/uL (0-0.2); Eosinophils # (auto) 0.1 10 ^3/uL (0-0.8); Monocytes # (auto) 0.6 10 ^3/uL (0-1.3)
[2021-11-14 06:16] LABS: Eosinophils % (auto) 1.8 % (0.0-7.0); Hematocrit 33.4 % (41.0-53.0); Lymphocytes # (auto) 1.9 10 ^3/uL (0.4-5.4); Lymphocytes % (auto) 30.6 % (10.0-50.0); Mean Corpuscular Volume 81.9 fL (80.0-100.0); Monocytes % (auto) 10.2 % (0.0-12.0); Neutrophils # (auto) 3.4 10 ^3/uL (1.6-8.6); Neutrophils % (auto) 56.4 % (37.0-80.0); Nucleated Red Blood Cells % 0.1 %; Red Blood Cells 4.08 10^6/uL (4.5-5.90); Red Cell Distribution Width 15.7 % (11.8-14.3); White Blood Cell 6.1 10^3/uL (4.4-10.8)
[2021-11-14 06:20] LABS: Calcium 7.8 mg/dL (8.5-10.1); Chloride 103 mmol/L (98-107); Potassium 4.2 mmol/L (3.5-5.1); Sodium 136 mmol/L (136-145)
[2021-11-14 06:26] LABS: Alanine Aminotransferase < 6 U/L (16-61); Alkaline Phosphatase 56 U/L (45-117); Anion Gap 6 (5-15); Aspartate Aminotransferase 12 U/L (15-37); BUN/Creatinine Ratio 9.8; Bilirubin, Total 0.3 mg/dL (0.2-1.0); Blood Urea Nitrogen 17 mg/dL (7-18); Carbon Dioxide 27 mmol/L (21-32); GFR African American 49 mL/min; GFR Non-African American 40 mL/min; Glucose 80 mg/dL (74-106); Total Protein 6.7 g/dL (6.4-8.2)
[2021-11-14] MEDS: ACCU-CHEK COMFORT CURVE STRIP VI SCH ×4 (06:56→21:22)
[2021-11-14] MEDS ORDERED: VANCOMYCIN 1GM/250ML 250 ML IV ONE (12:00)
[2021-11-14] MEDS: FOLIC ACID 1 MG TAB PO SCH (12:37)
[2021-11-14] MEDS: CHOLECALCIFEROL (VITD3) 2,000 UNIT CAP/TAB PO SCH (12:38)
[2021-11-14] MEDS: ENOXAPARIN SOD 40 MG/0.4 ML SYRINGE SC SCH (12:39)
[2021-11-14] MEDS: cefTRIAXone 1GM/50ML D5W 50 ML IV SCH (12:41)
[2021-11-14] MEDS: CYANOCOBALAMIN 500 MCG TAB PO SCH (12:42)
[2021-11-14] MEDS: HYDROcodone-ACET 5/325MG TAB PO PRN (20:14)
[2021-11-15 05:00] VITALS: BP 161/69
[2021-11-15] MEDS: hydrALAZINE HCL 20 MG/ML VL IV PRN (05:47)
[2021-11-15] MEDS: ACCU-CHEK COMFORT CURVE STRIP VI SCH ×4 (05:47→22:12)
[2021-11-15] MEDS: INSULIN LANTUS (GLARGINE) 1 /0.01ml (100units/ml) SC SCH ×2 (05:47→22:13)
[2021-11-15] MEDS: InsuLIN REG 1unit/0.01ml Soln (100units/ml) SC SCH ×4 (05:47→22:13)
[2021-11-15] MEDS ORDERED: ceFAZolin 1GM/50ML 100 ML IV ONE (06:34)
[2021-11-15 09:00] VITALS: BP 147/51
[2021-11-15] MEDS: ENOXAPARIN SOD 40 MG/0.4 ML SYRINGE SC SCH (10:44)
[2021-11-15] MEDS: cefTRIAXone 1GM/50ML D5W 50 ML IV SCH (10:44)
[2021-11-15] MEDS: FOLIC ACID 1 MG TAB PO SCH (10:46)
[2021-11-15] MEDS: ASCORBIC ACID 500 MG TAB PO SCH ×2 (10:48→22:11)
[2021-11-15] MEDS: CYANOCOBALAMIN 500 MCG TAB PO SCH (10:48)
[2021-11-15] MEDS: CHOLECALCIFEROL (VITD3) 2,000 UNIT CAP/TAB PO SCH (10:49)
[2021-11-15] MEDS: HYDROcodone-ACET 5/325MG TAB PO PRN ×2 (12:29→17:56)
[2021-11-15 13:00] VITALS: BP 144/66
[2021-11-15 17:00] VITALS: BP 153/68
[2021-11-15] MEDS: ONDANSETRON HCL 4 MG/2 ML VIAL IV PRN (17:55)
[2021-11-15 22:00] VITALS: BP 151/71
[2021-11-15] MEDS: DOCUSATE SOD 100 MG CAP PO SCH (22:11)
[2021-11-16] MEDS: HYDROcodone-ACET 5/325MG TAB PO PRN ×2 (01:22→06:36)
[2021-11-16 05:00] VITALS: BP 166/61
[2021-11-16] MEDS: ACCU-CHEK COMFORT CURVE STRIP VI SCH ×4 (06:35→22:26)
[2021-11-16] MEDS: InsuLIN REG 1unit/0.01ml Soln (100units/ml) SC SCH ×4 (06:35→22:00)
[2021-11-16] MEDS: ONDANSETRON HCL 4 MG/2 ML VIAL IV PRN ×2 (06:36→13:27)
[2021-11-16] MEDS: hydrALAZINE HCL 20 MG/ML VL IV PRN (06:36)
[2021-11-16] MEDS: INSULIN LANTUS (GLARGINE) 1 /0.01ml (100units/ml) SC SCH ×2 (06:38→22:00)
[2021-11-16 08:00] VITALS: BP 166/61
[2021-11-16 09:00] VITALS: BP 151/71
[2021-11-16] MEDS: cefTRIAXone 1GM/50ML D5W 50 ML IV SCH (09:52)
[2021-11-16] MEDS: FOLIC ACID 1 MG TAB PO SCH (09:52)
[2021-11-16] MEDS: CHOLECALCIFEROL (VITD3) 2,000 UNIT CAP/TAB PO SCH (09:53)
[2021-11-16] MEDS: ASCORBIC ACID 500 MG TAB PO SCH ×2 (09:53→22:32)
[2021-11-16] MEDS: CYANOCOBALAMIN 500 MCG TAB PO SCH (09:53)
[2021-11-16] MEDS: DOCUSATE SOD 100 MG CAP PO SCH ×2 (09:53→22:30)
[2021-11-16] MEDS: ENOXAPARIN SOD 40 MG/0.4 ML SYRINGE SC SCH (09:53)
[2021-11-16] MEDS ORDERED: VANCOMYCIN 1GM/250ML 250 ML IV ONE (10:00)
[2021-11-16] MEDS ORDERED: METOPROLOL TARTRATE 25 MG TAB PO ONE (10:15)
[2021-11-16] MEDS ORDERED: amLODIPine BESYLATE 5 MG TAB PO ONE (10:15)
[2021-11-16 11:23] LABS: INR 0.97 (0.9-1.15)
[2021-11-16 17:00] VITALS: BP 163/71
[2021-11-16 20:00] VITALS: BP 166/61
[2021-11-16 21:39] VITALS: BP 155/69
[2021-11-16] MEDS: METOPROLOL TARTRATE 25 MG TAB PO SCH (22:31)
[2021-11-17] MEDS: HYDROcodone-ACET 5/325MG TAB PO PRN (04:20)
[2021-11-17 04:56] VITALS: BP 150/72
[2021-11-17 06:16] LABS: Basophils # (auto) 0.1 10 ^3/uL (0-0.2); Eosinophils # (auto) 0.1 10 ^3/uL (0-0.8); Eosinophils % (auto) 2.3 % (0.0-7.0); Hematocrit 35.1 % (41.0-53.0); Hemoglobin 11.6 g/dL (13.5-17.5); Lymphocytes # (auto) 2.1 10 ^3/uL (0.4-5.4); Lymphocytes % (auto) 36.2 % (10.0-50.0); Mean Corpuscular Hemoglobin 27.1 pg (28.0-32.0); Mean Corpuscular Hgb Conc. 32.9 g/dL (32.0-36.0); Mean Corpuscular Volume 82.2 fL (80.0-100.0); Monocytes # (auto) 0.6 10 ^3/uL (0-1.3); Monocytes % (auto) 9.7 % (0.0-12.0); Neutrophils # (auto) 2.9 10 ^3/uL (1.6-8.6); Neutrophils % (auto) 50.8 % (37.0-80.0); Nucleated Red Blood Cells % 0.1 %; Red Blood Cells 4.28 10^6/uL (4.5-5.90); Red Cell Distribution Width 16.4 % (11.8-14.3); White Blood Cell 5.7 10^3/uL (4.4-10.8)
[2021-11-17] MEDS: INSULIN LANTUS (GLARGINE) 1 /0.01ml (100units/ml) SC SCH ×2 (06:22→22:00)
[2021-11-17] MEDS: ACCU-CHEK COMFORT CURVE STRIP VI SCH ×4 (06:22→23:16)
[2021-11-17] MEDS: InsuLIN REG 1unit/0.01ml Soln (100units/ml) SC SCH ×4 (06:22→23:17)
[2021-11-17 06:30] LABS: Calcium 8.4 mg/dL (8.5-10.1); Potassium 3.9 mmol/L (3.5-5.1)
[2021-11-17 06:33] LABS: BUN/Creatinine Ratio 7.5
[2021-11-17 08:00] VITALS: BP 166/61
[2021-11-17] MEDS ORDERED: PNEUMOCOCCAL VACC POLYS 25 MCG/0.5 ML VIAL IM ONE (08:00)
[2021-11-17 09:00] VITALS: BP 117/66
[2021-11-17] MEDS: cefTRIAXone 1GM/50ML D5W 50 ML IV SCH (09:31)
[2021-11-17] MEDS: METOPROLOL TARTRATE 25 MG TAB PO SCH ×2 (09:33→23:16)
[2021-11-17] MEDS: ENOXAPARIN SOD 40 MG/0.4 ML SYRINGE SC SCH (09:33)
[2021-11-17] MEDS: DOCUSATE SOD 100 MG CAP PO SCH ×2 (09:33→23:15)
[2021-11-17] MEDS: FOLIC ACID 1 MG TAB PO SCH (09:34)
[2021-11-17] MEDS: ASCORBIC ACID 500 MG TAB PO SCH ×2 (09:35→23:15)
[2021-11-17] MEDS: CYANOCOBALAMIN 500 MCG TAB PO SCH (09:35)
[2021-11-17] MEDS: amLODIPine BESYLATE 5 MG TAB PO SCH (09:36)
[2021-11-17] MEDS: CHOLECALCIFEROL (VITD3) 2,000 UNIT CAP/TAB PO SCH (09:36)
[2021-11-17 12:59] VITALS: BP 147/63
[2021-11-17 17:25] VITALS: BP 148/73
[2021-11-17 22:00] VITALS: BP 140/67
[2021-11-18 05:00] VITALS: BP 133/53
[2021-11-18] MEDS: INSULIN LANTUS (GLARGINE) 1 /0.01ml (100units/ml) SC SCH ×2 (06:43→22:00)
[2021-11-18] MEDS: InsuLIN REG 1unit/0.01ml Soln (100units/ml) SC SCH ×4 (06:46→21:59)
[2021-11-18] MEDS: ACCU-CHEK COMFORT CURVE STRIP VI SCH ×4 (06:47→21:59)
[2021-11-18] MEDS: FOLIC ACID 1 MG TAB PO SCH (08:48)
[2021-11-18] MEDS: cefTRIAXone 1GM/50ML D5W 50 ML IV SCH (08:48)
[2021-11-18] MEDS: DOCUSATE SOD 100 MG CAP PO SCH ×2 (08:48→21:57)
[2021-11-18] MEDS: METOPROLOL TARTRATE 25 MG TAB PO SCH ×2 (08:49→21:58)
[2021-11-18] MEDS: amLODIPine BESYLATE 5 MG TAB PO SCH (08:49)
[2021-11-18] MEDS: ENOXAPARIN SOD 40 MG/0.4 ML SYRINGE SC SCH (08:50)
[2021-11-18] MEDS: ASCORBIC ACID 500 MG TAB PO SCH ×2 (08:50→21:57)
[2021-11-18] MEDS: CHOLECALCIFEROL (VITD3) 2,000 UNIT CAP/TAB PO SCH (08:50)
[2021-11-18] MEDS: CYANOCOBALAMIN 500 MCG TAB PO SCH (08:50)
[2021-11-18 09:00] VITALS: BP 147/76
[2021-11-18 13:00] VITALS: BP 158/67
[2021-11-18] MEDS: MORPHINE SULFATE INJ 2 MG/ml SYRG IV PRN ×2 (14:13→20:50)
[2021-11-18] MEDS ORDERED: VANCOMYCIN 1GM/250ML 250 ML IV ONE (15:00)
[2021-11-18 16:51] VITALS: BP 154/67
[2021-11-18 22:00] VITALS: BP 138/68
[2021-11-19 05:00] VITALS: BP 113/62
[2021-11-19] MEDS: InsuLIN REG 1unit/0.01ml Soln (100units/ml) SC SCH ×3 (06:38→17:29)
[2021-11-19] MEDS: ACCU-CHEK COMFORT CURVE STRIP VI SCH ×3 (06:38→17:28)
[2021-11-19] MEDS: INSULIN LANTUS (GLARGINE) 1 /0.01ml (100units/ml) SC SCH (06:39)
[2021-11-19 06:59] LABS: INR 0.96 (0.9-1.15); Partial Thromboplastin Time 30.6 sec (24.6-33.4)
[2021-11-19 09:00] VITALS: BP 147/67
[2021-11-19] MEDS: DOCUSATE SOD 100 MG CAP PO SCH (09:35)
[2021-11-19] MEDS: CYANOCOBALAMIN 500 MCG TAB PO SCH (09:35)
[2021-11-19] MEDS: ASCORBIC ACID 500 MG TAB PO SCH (09:35)
[2021-11-19] MEDS: CHOLECALCIFEROL (VITD3) 2,000 UNIT CAP/TAB PO SCH (09:36)
[2021-11-19] MEDS: FOLIC ACID 1 MG TAB PO SCH (09:36)
[2021-11-19] MEDS: amLODIPine BESYLATE 5 MG TAB PO SCH (09:37)
[2021-11-19] MEDS: METOPROLOL TARTRATE 25 MG TAB PO SCH (09:37)
[2021-11-19] MEDS: ENOXAPARIN SOD 40 MG/0.4 ML SYRINGE SC SCH (09:37)
[2021-11-19] MEDS: MORPHINE SULFATE INJ 2 MG/ml SYRG IV PRN (09:40)
[2021-11-19] MEDS ORDERED: rifAMPin 300 MG CAP PO SCH (10:00)
[2021-11-19] MEDS ORDERED: RIFA300C3 PO (10:26)
[2021-11-19 12:00] VITALS: BP 114/75
[2021-11-19] MEDS ORDERED: ceFAZolin 2 GM in D5W 5% 100 ML IV SCH (14:00)
[2021-11-19 17:00] VITALS: BP 158/65
[2021-11-19 17:58] VITALS: BP 147/67
[2021-11-19] MEDS ORDERED: Juven Orange Powder PACKET 27.5gm PO SCH (18:00)
== END 2021-11-19 18:28 | disposition home or self-care (01) | DRG 349 ==
LOC: ER 09:49 → OVERFLOW 18:20 → EAST 23:23
PROVIDERS: ADMIT Internal Medicine; ATTEND Internal Medicine
DX: T84.623A Infection and inflammatory reaction due to internal fixation device of left tibia, initial encounter (principal); N17.0 Acute kidney failure with tubular necrosis; L03.116 Cellulitis of left lower limb; E87.1 Hypo-osmolality and hyponatremia; E88.09 Other disorders of plasma-protein metabolism, not elsewhere classified; L97.329 Non-pressure chronic ulcer of left ankle with unspecified severity; E11.22 Type 2 diabetes mellitus with diabetic chronic kidney disease; E11.69 Type 2 diabetes mellitus with other specified complication; B95.61 Methicillin susceptible Staphylococcus aureus infection as the cause of diseases classified elsewhere; E78.5 Hyperlipidemia, unspecified; Z20.822 Contact with and (suspected) exposure to COVID-19; I12.9 Hypertensive chronic kidney disease with stage 1 through stage 4 chronic kidney disease, or unspecified chronic kidney disease; N18.9 Chronic kidney disease, unspecified; Z79.4 Long term (current) use of insulin; Z91.19 Patient's noncompliance with other medical treatment and regimen; Z86.73 Personal history of transient ischemic attack (TIA), and cerebral infarction without residual deficits; M86.9 Osteomyelitis, unspecified
CPT/HCPCS: 36415; 70450; 71045; 73700; 73721; 78315; 80048; 80053; 80202; 82565; 82962; 83735; 84484; 85025; 85610; 85652; 85730; 86141; 86850; 86900; 86901; 87081; 87205; 93005; 93971; 96365; 96367; 96375; G0378; J0690; J0696; J1815; J2405; J2543; J7060

== ENCOUNTER → 2021-11-30 | Emergency (ER) | payer MEDICAID ==
[~2021-11-30] VITALS: Ht 170.2 cm; Wt 180.0 kg
[~2021-11-30] MED LIST changes: +HYDROcodone-ACET 5/325MG TAB PO ONE; +RIFA300C3 PO
[2021-11-30 01:49] LABS: Urine Bacteria FEW /hpf (None Seen); Urine Blood 2+ /uL (Negative); Urine Specific Gravity 1.009 (1.001-1.035); Urine WBC 4 /hpf (0 - 3)
[2021-11-30 02:23] LABS: Alanine Aminotransferase < 6 U/L (16-61); Albumin 2.4 g/dL (3.4-5.0); Anion Gap 8 (5-15); Aspartate Aminotransferase 15 U/L (15-37); BUN/Creatinine Ratio 13.1; Blood Urea Nitrogen 18 mg/dL (7-18); Calcium 7.9 mg/dL (8.5-10.1); Carbon Dioxide 25 mmol/L (21-32); Chloride 95 mmol/L (98-107); GFR African American 64 mL/min; GFR Non-African American 53 mL/min; Glucose 91 mg/dL (74-106); Potassium 4.1 mmol/L (3.5-5.1); Sodium 128 mmol/L (136-145)
[2021-11-30 02:24] LABS: Hematocrit 35.3 % (41.0-53.0); Hemoglobin 11.8 g/dL (13.5-17.5); Red Blood Cells 4.33 10^6/uL (4.5-5.90); Red Cell Distribution Width 16.1 % (11.8-14.3)
[2021-11-30 02:26] LABS: Alkaline Phosphatase 129 U/L (45-117); Bilirubin, Total 0.2 mg/dL (0.2-1.0); Total Protein 6.5 g/dL (6.4-8.2)
[2021-11-30 02:27] LABS: Basophils # (auto) 0.1 10 ^3/uL (0-0.2); Basophils % (auto) 0.8 % (0.0-2.0); Eosinophils # (auto) 0 10 ^3/uL (0-0.8); Eosinophils % (auto) 0.3 % (0.0-7.0); Lymphocytes # (auto) 2.6 10 ^3/uL (0.4-5.4); Lymphocytes % (auto) 40.5 % (10.0-50.0); Mean Corpuscular Hemoglobin 27.2 pg (28.0-32.0); Mean Corpuscular Hgb Conc. 33.4 g/dL (32.0-36.0); Mean Corpuscular Volume 81.4 fL (80.0-100.0); Monocytes # (auto) 0.7 10 ^3/uL (0-1.3); Monocytes % (auto) 10.1 % (0.0-12.0); Neutrophils # (auto) 3.1 10 ^3/uL (1.6-8.6); Neutrophils % (auto) 48.3 % (37.0-80.0); Nucleated Red Blood Cells % 0.1 %; White Blood Cell 6.5 10^3/uL (4.4-10.8)
[2021-11-30 06:57] VITALS: BP 142/75
[2021-11-30 09:50] LABS: Alcohol, Urine < 3.0 mg/dL (0-10); Amphetamine Screen, Urine NEGATIVE (NEGATIVE); Barbiturate Scree,Urine NEGATIVE (NEGATIVE); Benzodiazephine Screen, Urine NEGATIVE (NEGATIVE); Cannabinoid Screen, Urine NEGATIVE (NEGATIVE); Cocaine Screen, Urine NEGATIVE (NEGATIVE); Opiate Scree,Urine NEGATIVE (NEGATIVE); Phencyclidine Screen, Urine NEGATIVE (NEGATIVE)
== END | disposition home or self-care (01) ==
LOC: EDBD 00:20 → ER 00:20 → EDUNIT# 00:20
DX: M86.672 Other chronic osteomyelitis, left ankle and foot (principal)
CPT/HCPCS: 36415; 80053; 80307; 81001; 85025

== ENCOUNTER 2023-05-27 13:11 | Inpatient (IN) | payer MEDICAID ==
[~2023-05-27] VITALS: Ht 162.6 cm; Wt 84.0 kg
[~2023-05-27 13:11] MED LIST changes: +FOLI-119 PO; -FOLI1TAB6 PO; -HYDROcodone-ACET 5/325MG TAB PO ONE; -RIFA300C3 PO; +RIFA300C58 PO
[2023-05-27 14:07] LABS: Basophils # (auto) 0.1 10 ^3/uL (0-0.2); Basophils % (auto) 0.5 % (0.0-2.0); Eosinophils # (auto) 0 10 ^3/uL (0-0.8); Eosinophils % (auto) 0.2 % (0.0-7.0); Hemoglobin 11.1 g/dL (13.5-17.5); Lymphocytes # (auto) 2.6 10 ^3/uL (0.4-5.4); Lymphocytes % (auto) 11.8 % (10.0-50.0); Mean Corpuscular Hgb Conc. 32.5 g/dL (32.0-36.0); Mean Corpuscular Volume 89.3 fL (80.0-100.0); Monocytes # (auto) 1.8 10 ^3/uL (0-1.3); Neutrophils # (auto) 17.8 10 ^3/uL (1.6-8.6); Neutrophils % (auto) 79.5 % (37.0-80.0); Nucleated Red Blood Cells % 0.1 %; Red Blood Cells 3.81 10^6/uL (4.5-5.90); Red Cell Distribution Width 15.9 % (11.8-14.3); White Blood Cell 22.4 10^3/uL (4.4-10.8)
[2023-05-27 14:22] LABS: Alanine Aminotransferase 13 U/L (7-40); Albumin 3.8 g/dL (3.2-4.8); Alkaline Phosphatase 103 U/L (46-116); Anion Gap 9 (5-15); Aspartate Aminotransferase 9 U/L (13-40); BUN/Creatinine Ratio 10.5 (10.0-20.0); Bilirubin, Total 0.7 mg/dL (0.2-1.0); Blood Urea Nitrogen 30 mg/dL (9-23); Calcium 8.4 mg/dL (8.7-10.4); Carbon Dioxide 19 mmol/L (20-30); Chloride 104 mmol/L (98-107); Glucose 126 mg/dL (74-106); Magnesium 2.3 mg/dL (1.6-2.6); Potassium 4.5 mmol/L (3.5-5.1); Sodium 132 mmol/L (136-145); Total Protein 6.7 g/dL (5.7-8.2)
[2023-05-27] MEDS ORDERED: PIPERACILLIN-TAZOB 3.375GM 100 ML IV ONE (15:00)
[2023-05-27] MEDS ORDERED: SODIUM CHLORIDE 0.9% 1,000 ML IV ONE (15:15)
[2023-05-27] MEDS ORDERED: DOCUSATE SOD 100 MG CAP PO PRN (17:15)
[2023-05-27] MEDS ORDERED: ONDANSETRON HCL 4 MG/2 ML VIAL IV PRN (17:15)
[2023-05-27] MEDS ORDERED: DEXTROSE (50%) 50ML SYRG IV PRN (17:15)
[2023-05-27] MEDS: SODIUM CHLORIDE 0.9% 1,000 ML IV SCH (17:44)
[2023-05-27] MEDS: InsuLIN REG 1unit/0.01ml Soln (100units/ml) SC SCH (18:00)
[2023-05-27] MEDS: ACCU-CHEK COMFORT CURVE STRIP VI SCH (18:00)
[2023-05-27 18:09] VITALS: PULSE 80; RESP 20; O2SAT 96
[2023-05-27 19:29] LABS: Urine Epithelial Cast None Seen /hpf (<5)
[2023-05-27 19:45] VITALS: PULSE 83; RESP 18; O2SAT 97
[2023-05-27 19:47] LABS: Urine Bacteria NONE SEEN /hpf (None Seen); Urine Blood 1+ /uL (Negative); Urine Clarity Clear (Clear); Urine Color Colorless (Yellow); Urine Protein, UAD 2+ (Negative); Urine Specific Gravity 1.012 (1.001-1.035); Urine Urobilinogen Normal (Negative); Urine WBC 106 /hpf (0 - 3)
[2023-05-27 19:53] LABS: Creatinine, Urine 56.46 mg/dL (30.0-125.0)
[2023-05-28] VITALS (7 sets, daily range): BP systolic 103–141; BP diastolic 41–70; PULSE 70–84; RESP 14–20; TEMP 98–98.8; O2SAT 95–99
[2023-05-28] MEDS: InsuLIN REG 1unit/0.01ml Soln (100units/ml) SC SCH ×4 (00:40→17:02)
[2023-05-28] MEDS: ACCU-CHEK COMFORT CURVE STRIP VI SCH ×4 (00:41→17:02)
[2023-05-28] MEDS: SODIUM CHLORIDE 0.9% 1,000 ML IV SCH (02:25)
[2023-05-28 06:50] LABS: Alanine Aminotransferase 14 U/L (7-40); Albumin 3.2 g/dL (3.2-4.8); Alkaline Phosphatase 77 U/L (46-116); Anion Gap 10 (5-15); Aspartate Aminotransferase 9 U/L (13-40); BUN/Creatinine Ratio 15.6 (10.0-20.0); Bilirubin, Total 0.7 mg/dL (0.2-1.0); Calcium 7.8 mg/dL (8.7-10.4); Carbon Dioxide 17 mmol/L (20-30); Chloride 110 mmol/L (98-107); Glucose 126 mg/dL (74-106); Potassium 4.7 mmol/L (3.5-5.1); Sodium 137 mmol/L (136-145); Total Protein 5.5 g/dL (5.7-8.2)
[2023-05-28 06:55] LABS: Blood Urea Nitrogen 42 mg/dL (9-23)
[2023-05-28 06:56] LABS: Basophils # (auto) 0.1 10 ^3/uL (0-0.2); Basophils % (auto) 0.3 % (0.0-2.0); Eosinophils # (auto) 0.1 10 ^3/uL (0-0.8); Eosinophils % (auto) 0.5 % (0.0-7.0); Hematocrit 30.2 % (41.0-53.0); Hemoglobin 9.8 g/dL (13.5-17.5); Lymphocytes # (auto) 3.4 10 ^3/uL (0.4-5.4); Lymphocytes % (auto) 17.2 % (10.0-50.0); Mean Corpuscular Hgb Conc. 32.4 g/dL (32.0-36.0); Mean Corpuscular Volume 89.4 fL (80.0-100.0); Monocytes # (auto) 1.6 10 ^3/uL (0-1.3); Monocytes % (auto) 8.2 % (0.0-12.0); Neutrophils # (auto) 14.8 10 ^3/uL (1.6-8.6); Neutrophils % (auto) 73.8 % (37.0-80.0); Nucleated Red Blood Cells % 0.1 %; Red Blood Cells 3.37 10^6/uL (4.5-5.90)
[2023-05-28] MEDS ORDERED: cefTRIAXone 1GM/50ML D5W 50 ML IV ONE (10:45)
[2023-05-28] MEDS: SODIUM BICARBONATE 50ML VIAL 50 ML in SOD CHL 0.45% 1,000 ML IV SCH ×2 (11:44→20:30)
[2023-05-28] MEDS ORDERED: SEVE800T8 PO (17:31)
[2023-05-28] MEDS ORDERED: METO25TA93 PO (17:31)
[2023-05-28] MEDS ORDERED: ASPI-543 PO (17:31)
[2023-05-28] MEDS ORDERED: ATOR20TA PO (17:31)
[2023-05-28] MEDS ORDERED: ALLO100T PO (17:31)
[2023-05-28] MEDS: INSULIN LANTUS (GLARGINE) 1 /0.01ml (100units/ml) SC SCH (22:00)
[2023-05-29] MEDS: ACCU-CHEK COMFORT CURVE STRIP VI SCH ×4 (00:26→16:40)
[2023-05-29] MEDS: InsuLIN REG 1unit/0.01ml Soln (100units/ml) SC SCH ×4 (00:27→16:53)
[2023-05-29 03:40] VITALS: BP 132/51; PULSE 70; RESP 18; TEMP 97.8; O2SAT 96
[2023-05-29 06:59] LABS: Basophils # (auto) 0 10 ^3/uL (0-0.2); Basophils % (auto) 0.4 % (0.0-2.0); Eosinophils # (auto) 0.1 10 ^3/uL (0-0.8); Eosinophils % (auto) 1.1 % (0.0-7.0); Hematocrit 30.3 % (41.0-53.0); Lymphocytes % (auto) 18.4 % (10.0-50.0); Mean Corpuscular Hemoglobin 29.5 pg (28.0-32.0); Mean Corpuscular Volume 89.4 fL (80.0-100.0); Monocytes % (auto) 9.2 % (0.0-12.0); Neutrophils # (auto) 7.7 10 ^3/uL (1.6-8.6); Neutrophils % (auto) 70.9 % (37.0-80.0); Nucleated Red Blood Cells % 0.1 %; Red Blood Cells 3.39 10^6/uL (4.5-5.90); Red Cell Distribution Width 16.2 % (11.8-14.3); White Blood Cell 10.8 10^3/uL (4.4-10.8)
[2023-05-29] MEDS: SODIUM BICARBONATE 50ML VIAL 50 ML in SOD CHL 0.45% 1,000 ML IV SCH ×2 (07:24→16:40)
[2023-05-29 07:38] LABS: Albumin 3.4 g/dL (3.2-4.8); Alkaline Phosphatase 73 U/L (46-116); Anion Gap 8 (5-15); Aspartate Aminotransferase 13 U/L (13-40); BUN/Creatinine Ratio 13.3 (10.0-20.0); Calcium 8.4 mg/dL (8.5-10.1); Carbon Dioxide 22 mmol/L (20-30); Chloride 108 mmol/L (98-107); Glucose 105 mg/dL (74-106); Potassium 4.1 mmol/L (3.5-5.1); Sodium 138 mmol/L (136-145)
[2023-05-29 07:39] LABS: Bilirubin, Total 0.4 mg/dL (0.2-1.0)
[2023-05-29 07:59] LABS: Alanine Aminotransferase < 9 U/L (7-40); Blood Urea Nitrogen 28 mg/dL (9-23)
[2023-05-29 08:00] VITALS: RESP 18
[2023-05-29 08:56] VITALS: BP 130/62; PULSE 70; RESP 20; TEMP 98.5; O2SAT 97
[2023-05-29] MEDS: cefTRIAXone 1GM/50ML D5W 50 ML IV SCH (09:22)
[2023-05-29 12:40] VITALS: BP 142/65; PULSE 62; RESP 20; TEMP 98.6; O2SAT 96
[2023-05-29] MEDS ORDERED: FLUCONAZOLE 100 MG TAB PO ONE (16:00)
[2023-05-29 20:00] VITALS: BP 171/94; PULSE 59; RESP 18; TEMP 98; O2SAT 98
[2023-05-29] MEDS: INSULIN LANTUS (GLARGINE) 1 /0.01ml (100units/ml) SC SCH (21:18)
[2023-05-29 22:00] VITALS: BP 171/94; PULSE 59; RESP 18; TEMP 98; O2SAT 98
[2023-05-29] MEDS ORDERED: hydrALAZINE HCL 20 MG/ML VL IV PRN (22:15)
[2023-05-30] MEDS: ACCU-CHEK COMFORT CURVE STRIP VI SCH ×4 (00:17→17:08)
[2023-05-30] MEDS: InsuLIN REG 1unit/0.01ml Soln (100units/ml) SC SCH ×4 (00:28→17:07)
[2023-05-30] MEDS: SODIUM BICARBONATE 50ML VIAL 50 ML in SOD CHL 0.45% 1,000 ML IV SCH ×2 (03:12→14:30)
[2023-05-30 05:00] VITALS: BP 109/51; PULSE 68; RESP 18; TEMP 98.1; O2SAT 94
[2023-05-30 08:00] VITALS: PULSE 60; RESP 18
[2023-05-30 08:11] LABS: Alanine Aminotransferase 10 U/L (7-40); Albumin 3.6 g/dL (3.2-4.8); Alkaline Phosphatase 72 U/L (46-116); Anion Gap 9 (5-15); Aspartate Aminotransferase 13 U/L (13-40); BUN/Creatinine Ratio 11.8 (10.0-20.0); Bilirubin, Total 0.4 mg/dL (0.2-1.0); Blood Urea Nitrogen 24 mg/dL (9-23); Calcium 8.7 mg/dL (8.5-10.1); Carbon Dioxide 22 mmol/L (20-30); Chloride 107 mmol/L (98-107); Glucose 111 mg/dL (74-106); Potassium 4.1 mmol/L (3.5-5.1); Sodium 138 mmol/L (136-145); Total Protein 6.4 g/dL (5.7-8.2)
[2023-05-30 08:34] VITALS: BP 150/73; PULSE 74; RESP 20; TEMP 98.4; O2SAT 99
[2023-05-30] MEDS ORDERED: FLUCONAZOLE 100 MG TAB PO SCH (10:00)
[2023-05-30] MEDS: cefTRIAXone 1GM/50ML D5W 50 ML IV SCH (10:37)
[2023-05-30 13:26] VITALS: BP 135/53; PULSE 60; RESP 18; TEMP 98.2; O2SAT 97
[2023-05-30] MEDS ORDERED: CEPH500C PO (15:07)
[2023-05-30 16:35] VITALS: BP 159/99; PULSE 58; RESP 20; TEMP 98.4; O2SAT 99
== END 2023-05-30 18:05 | disposition home or self-care (01) | DRG 720 ==
LOC: EDBD 13:11 → ER 13:11 → OVERFLOW 17:23 → WEST WING 22:48
PROVIDERS: ADMIT Nurse Practitioner Family; ATTEND Internal Medicine
DX: A41.9 Sepsis, unspecified organism (principal); N17.0 Acute kidney failure with tubular necrosis; G93.41 Metabolic encephalopathy; D63.1 Anemia in chronic kidney disease; E87.1 Hypo-osmolality and hyponatremia; E11.22 Type 2 diabetes mellitus with diabetic chronic kidney disease; F03.90 Unspecified dementia, unspecified severity, without behavioral disturbance, psychotic disturbance, mood disturbance, and anxiety; I95.9 Hypotension, unspecified; N30.00 Acute cystitis without hematuria; B96.20 Unspecified Escherichia coli [E. coli] as the cause of diseases classified elsewhere; E11.65 Type 2 diabetes mellitus with hyperglycemia; E78.5 Hyperlipidemia, unspecified; I12.9 Hypertensive chronic kidney disease with stage 1 through stage 4 chronic kidney disease, or unspecified chronic kidney disease; R80.9 Proteinuria, unspecified; N18.32 Chronic kidney disease, stage 3b
CPT/HCPCS: 36415; 70450; 71045; 76775; 80053; 81001; 82570; 82962; 83036; 83605; 83735; 83880; 84300; 84484; 85025; 87040; 87086; 87088; 87186; 93005; G0378; J1815; J2543

== ENCOUNTER 2023-09-01 13:52 | Inpatient (IN) | payer MEDICAID ==
[~2023-09-01] VITALS: Ht 162.6 cm; Wt 86.4 kg
[~2023-09-01 13:52] MED LIST changes: +ALL100T PO; +AML5T PO; +ASPI-543 PO; +ATOR20TA PO; -BLOO-200 XX; -CHOL1CAP47 PO; -CYAN500T3 PO; +DAPA1TAB4 PO; +ERGO1CAP12 PO; -FOLI-119 PO; -FURO40TA4 PO; -INSLANTI SC; -INSU100I2 SC; +INSU1INJ19 SC; +LEVO500T91 PO; +MEMA1TAB3 PO; +MET500T PO; +PANT40T PO; +QUET100T47 PO; -RIFA300C58 PO; +SEVE800T8 PO
[2023-09-01 17:36] LABS: Basophils # (auto) 0.1 10 ^3/uL (0-0.2); Basophils % (auto) 1.2 % (0.0-2.0); Eosinophils # (auto) 0.1 10 ^3/uL (0-0.8); Eosinophils % (auto) 1.2 % (0.0-7.0); Hematocrit 35.5 % (41.0-53.0); Hemoglobin 11.6 g/dL (13.5-17.5); Lymphocytes # (auto) 2.2 10 ^3/uL (0.4-5.4); Lymphocytes % (auto) 27.1 % (10.0-50.0); Mean Corpuscular Hemoglobin 28.9 pg (28.0-32.0); Mean Corpuscular Hgb Conc. 32.6 g/dL (32.0-36.0); Mean Corpuscular Volume 88.8 fL (80.0-100.0); Monocytes # (auto) 0.6 10 ^3/uL (0-1.3); Monocytes % (auto) 7.4 % (0.0-12.0); Neutrophils # (auto) 5.1 10 ^3/uL (1.6-8.6); Neutrophils % (auto) 63.1 % (37.0-80.0); Nucleated Red Blood Cells % 0.1 %; Red Cell Distribution Width 16.1 % (11.8-14.3); White Blood Cell 8.1 10^3/uL (4.4-10.8)
[2023-09-01 17:42] LABS: INR 0.98 (0.9-1.15); Partial Thromboplastin Time 30.6 SEC (24.5-34.5); Prothrombin Time 10.3 sec (9.3-11.8)
[2023-09-01 17:49] LABS: Alanine Aminotransferase 12 U/L (7-40); Albumin 3.9 g/dL (3.2-4.8); Alkaline Phosphatase 196 U/L (46-116); Anion Gap 6 (5-15); Aspartate Aminotransferase < 8 U/L (13-40); BUN/Creatinine Ratio 14.3 (10.0-20.0); Blood Urea Nitrogen 34 mg/dL (9-23); Carbon Dioxide 24 mmol/L (20-30); Chloride 104 mmol/L (98-107); Magnesium 2.3 mg/dL (1.6-2.6); Potassium 4.7 mmol/L (3.5-5.1); Sodium 134 mmol/L (136-145)
[2023-09-01 17:50] LABS: Bilirubin, Total 0.5 mg/dL (0.2-1.0); Total Protein 6.6 g/dL (5.7-8.2)
[2023-09-01 18:18] LABS: Glucose 437 mg/dL (74-106)
[2023-09-01] MEDS ORDERED: ACETAMINOPHEN 325 MG TAB PO PRN (23:45)
[2023-09-01] MEDS ORDERED: DEXTROSE (50%) 50ML SYRG IV PRN (23:45)
[2023-09-01] MEDS ORDERED: ONDANSETRON HCL 4 MG/2 ML VIAL IV PRN (23:45)
[2023-09-02] MEDS: ASPirin 81 mg TAB PO ONE (03:56)
[2023-09-02] MEDS: InsuLIN REG 1unit/0.01ml Soln (100units/ml) SC SCH (04:00)
[2023-09-02] MEDS: ACCU-CHEK COMFORT CURVE STRIP VI SCH (04:02)
[2023-09-02] MEDS: SODIUM CHLORIDE 0.9% 1,000 ML IV ONE (04:43)
[2023-09-02] MEDS: CLINDAMYCIN 600MG IV 50 ML IV ONE (05:25)
[2023-09-02 06:30] LABS: Anion Gap 9 (5-15); Carbon Dioxide 23 mmol/L (20-30); Chloride 104 mmol/L (98-107); Potassium 4.2 mmol/L (3.5-5.1); Sodium 136 mmol/L (136-145)
[2023-09-02] MEDS: SODIUM CHLORIDE 0.9% 1,000 ML IVB ONE (06:31)
[2023-09-02 06:32] LABS: Calcium 8.7 mg/dL (8.5-10.1)
[2023-09-02 06:36] LABS: Blood Urea Nitrogen 30 mg/dL (9-23)
[2023-09-02 06:48] LABS: Glucose 286 mg/dL (74-106)
[2023-09-02 07:04] LABS: Basophils # (auto) 0.1 10 ^3/uL (0-0.2); Basophils % (auto) 1.3 % (0.0-2.0); Eosinophils # (auto) 0.1 10 ^3/uL (0-0.8); Eosinophils % (auto) 1.2 % (0.0-7.0); Hematocrit 33.8 % (41.0-53.0); Lymphocytes # (auto) 2.6 10 ^3/uL (0.4-5.4); Lymphocytes % (auto) 26.2 % (10.0-50.0); Mean Corpuscular Hemoglobin 28.8 pg (28.0-32.0); Mean Corpuscular Hgb Conc. 32.6 g/dL (32.0-36.0); Mean Corpuscular Volume 88.2 fL (80.0-100.0); Monocytes # (auto) 0.8 10 ^3/uL (0-1.3); Monocytes % (auto) 8.6 % (0.0-12.0); Neutrophils # (auto) 6.2 10 ^3/uL (1.6-8.6); Neutrophils % (auto) 62.7 % (37.0-80.0); Nucleated Red Blood Cells % 0.1 %; Red Blood Cells 3.83 10^6/uL (4.5-5.90); White Blood Cell 9.8 10^3/uL (4.4-10.8)
[2023-09-02 07:30] VITALS: RESP 20; O2SAT 98
[2023-09-02] MEDS: CLINDAMYCIN 600MG IV 50 ML IV SCH (07:47)
[2023-09-02] MEDS: SEVELAMER 800 MG TAB PO SCH (07:58)
[2023-09-02 08:55] VITALS: BP 151/71; PULSE 85; RESP 17; TEMP 99.4; O2SAT 98
[2023-09-02 09:20] LABS: Free T3 2.9 pg/mL (2.3-4.2); Free T4 (Free Thyroxine) 1.06 ng/dL (0.89-1.76)
[2023-09-02] MEDS: SODIUM BICARBONATE 650 MG TAB PO SCH (11:03)
[2023-09-02] MEDS: MEMANTINE HCL 5 MG TAB PO SCH (11:03)
[2023-09-02] MEDS: amLODIPine BESYLATE 5 MG TAB PO SCH (11:05)
[2023-09-02] MEDS ORDERED: SODI650T PO (11:07)
[2023-09-02 12:15] VITALS: BP 136/65; PULSE 75; RESP 16; TEMP 98; O2SAT 98
[2023-09-02] MEDS: cefTRIAXone 1GM/50ML D5W 50 ML IV ONE (12:37)
[2023-09-02 16:00] VITALS: BP 137/76; PULSE 80; RESP 16; TEMP 98.6; O2SAT 98
[2023-09-02] MEDS ORDERED: QUET50TA PO (16:40)
[2023-09-02] MEDS ORDERED: METO-289 PO (16:43)
[2023-09-02] MEDS ORDERED: hydrALAZINE HCL 20 MG/ML VL IV PRN (20:15)
[2023-09-02] MEDS ORDERED: ERGOCALCIFEROL 50,000 UNIT(1.25MG) CAP PO SCH (20:15)
[2023-09-02 20:52] VITALS: BP 146/64; PULSE 81; RESP 19; TEMP 97.8; O2SAT 99
[2023-09-02] MEDS: ATORVASTATIN 20 MG TAB PO SCH (21:30)
[2023-09-02] MEDS: QUEtiapine FUMARATE 25 MG TAB PO SCH (21:30)
[2023-09-03] VITALS (7 sets, daily range): BP systolic 110–139; BP diastolic 61–81; PULSE 76–84; RESP 14–18; TEMP 97.7–98.3; O2SAT 96–99
[2023-09-03 05:45] LABS: Basophils # (auto) 0.1 10 ^3/uL (0-0.2); Basophils % (auto) 2.3 % (0.0-2.0); Eosinophils # (auto) 0.1 10 ^3/uL (0-0.8); Eosinophils % (auto) 1.6 % (0.0-7.0); Hematocrit 34.2 % (41.0-53.0); Hemoglobin 11.2 g/dL (13.5-17.5); Lymphocytes # (auto) 1.7 10 ^3/uL (0.4-5.4); Lymphocytes % (auto) 30.4 % (10.0-50.0); Mean Corpuscular Hemoglobin 28.7 pg (28.0-32.0); Mean Corpuscular Hgb Conc. 32.8 g/dL (32.0-36.0); Mean Corpuscular Volume 87.5 fL (80.0-100.0); Monocytes # (auto) 0.7 10 ^3/uL (0-1.3); Monocytes % (auto) 12.6 % (0.0-12.0); Neutrophils # (auto) 2.9 10 ^3/uL (1.6-8.6); Neutrophils % (auto) 53.1 % (37.0-80.0); Nucleated Red Blood Cells % 0.1 %; Red Cell Distribution Width 15.9 % (11.8-14.3); White Blood Cell 5.5 10^3/uL (4.4-10.8)
[2023-09-03 05:59] LABS: Albumin 3.6 g/dL (3.2-4.8); Alkaline Phosphatase 74 U/L (46-116); Anion Gap 8 (5-15); Aspartate Aminotransferase 10 U/L (13-40); BUN/Creatinine Ratio 12.9 (10.0-20.0); Blood Urea Nitrogen 24 mg/dL (9-23); Calcium 8.9 mg/dL (8.7-10.4); Carbon Dioxide 24 mmol/L (20-30); Chloride 106 mmol/L (98-107); Magnesium 2.2 mg/dL (1.6-2.6); Potassium 4.1 mmol/L (3.5-5.1); Sodium 138 mmol/L (136-145)
[2023-09-03 06:00] LABS: Bilirubin, Total 0.5 mg/dL (0.2-1.0); Total Protein 6.2 g/dL (5.7-8.2)
[2023-09-03 06:05] LABS: Alanine Aminotransferase < 9 U/L (7-40); Glucose 106 mg/dL (74-106)
[2023-09-03] MEDS: cefTRIAXone 1GM/50ML D5W 50 ML IV SCH (09:25)
[2023-09-03] MEDS: PANTOPRAZOLE 40 MG TAB PO SCH (09:28)
[2023-09-03] MEDS: ENOXAPARIN SOD 30 MG/0.3 ML SYRINGE SC SCH (09:28)
[2023-09-03] MEDS: ALLOPURINOL 100 MG TAB PO SCH (09:28)
[2023-09-03] MEDS ORDERED: AUG875T PO (11:57)
[2023-09-03] MEDS: DAKINS QUARTER STR 0.125% (NaHypochlorite) 473 ML TOPICAL SOL TOP SCH (21:07)
[2023-09-04] VITALS (7 sets, daily range): BP systolic 102–131; BP diastolic 50–69; PULSE 76–88; RESP 18–20; TEMP 97.8–98.8; O2SAT 95–96
[2023-09-04 06:35] LABS: Basophils # (auto) 0.1 10 ^3/uL (0-0.2); Eosinophils # (auto) 0.1 10 ^3/uL (0-0.8); Eosinophils % (auto) 1.9 % (0.0-7.0); Hematocrit 33.3 % (41.0-53.0); Hemoglobin 11.2 g/dL (13.5-17.5); Lymphocytes # (auto) 2.6 10 ^3/uL (0.4-5.4); Lymphocytes % (auto) 44.7 % (10.0-50.0); Mean Corpuscular Hemoglobin 29.7 pg (28.0-32.0); Mean Corpuscular Hgb Conc. 33.6 g/dL (32.0-36.0); Mean Corpuscular Volume 88.4 fL (80.0-100.0); Monocytes # (auto) 0.7 10 ^3/uL (0-1.3); Monocytes % (auto) 12.9 % (0.0-12.0); Neutrophils # (auto) 2.2 10 ^3/uL (1.6-8.6); Neutrophils % (auto) 38.5 % (37.0-80.0); Nucleated Red Blood Cells % 0.2 %; Red Blood Cells 3.76 10^6/uL (4.5-5.90); Red Cell Distribution Width 15.6 % (11.8-14.3); White Blood Cell 5.8 10^3/uL (4.4-10.8)
[2023-09-04 06:44] LABS: Calcium 8.8 mg/dL (8.7-10.4); Chloride 106 mmol/L (98-107); Potassium 4.3 mmol/L (3.5-5.1); Sodium 136 mmol/L (136-145)
[2023-09-04 06:45] LABS: Anion Gap 6 (5-15); Carbon Dioxide 24 mmol/L (20-30)
[2023-09-04 06:50] LABS: BUN/Creatinine Ratio 11.4 (10.0-20.0); Blood Urea Nitrogen 23 mg/dL (9-23); Glucose 120 mg/dL (74-106)
[2023-09-04 06:51] LABS: Magnesium 2.2 mg/dL (1.6-2.6)
[2023-09-04] MEDS: HYDROcodone-ACET 5/325MG TAB PO PRN (10:13)
[2023-09-05] VITALS (7 sets, daily range): BP systolic 106–155; BP diastolic 57–67; PULSE 63–83; RESP 16–18; TEMP 97.7–98.4; O2SAT 95–99
[2023-09-06] VITALS (7 sets, daily range): BP systolic 111–143; BP diastolic 59–68; PULSE 74–87; RESP 16–22; TEMP 97.8–98.8; O2SAT 96–99
[2023-09-06 06:55] LABS: Basophils # (auto) 0.1 10 ^3/uL (0-0.2); Basophils % (auto) 1.3 % (0.0-2.0); Eosinophils # (auto) 0.1 10 ^3/uL (0-0.8); Eosinophils % (auto) 2.1 % (0.0-7.0); Hematocrit 35.3 % (41.0-53.0); Hemoglobin 11.5 g/dL (13.5-17.5); Lymphocytes # (auto) 2.3 10 ^3/uL (0.4-5.4); Mean Corpuscular Hemoglobin 28.5 pg (28.0-32.0); Mean Corpuscular Hgb Conc. 32.5 g/dL (32.0-36.0); Mean Corpuscular Volume 87.9 fL (80.0-100.0); Monocytes # (auto) 0.7 10 ^3/uL (0-1.3); Monocytes % (auto) 11.3 % (0.0-12.0); Neutrophils # (auto) 3.2 10 ^3/uL (1.6-8.6); Neutrophils % (auto) 49.3 % (37.0-80.0); Nucleated Red Blood Cells % 0.1 %; Red Blood Cells 4.02 10^6/uL (4.5-5.90); Red Cell Distribution Width 15.5 % (11.8-14.3); White Blood Cell 6.4 10^3/uL (4.4-10.8)
[2023-09-06 07:12] LABS: Anion Gap 7 (5-15); Carbon Dioxide 23 mmol/L (20-30); Chloride 104 mmol/L (98-107); Potassium 4.2 mmol/L (3.5-5.1); Sodium 134 mmol/L (136-145)
[2023-09-06 07:13] LABS: Calcium 8.7 mg/dL (8.7-10.4)
[2023-09-06 07:17] LABS: Glucose 188 mg/dL (74-106)
[2023-09-06 07:18] LABS: BUN/Creatinine Ratio 10.6 (10.0-20.0); Blood Urea Nitrogen 22 mg/dL (9-23); Magnesium 2.2 mg/dL (1.6-2.6)
[2023-09-07] VITALS (9 sets, daily range): BP systolic 120–142; BP diastolic 55–70; PULSE 71–86; RESP 14–20; TEMP 97.7–98.2; O2SAT 95–98
== END 2023-09-07 22:51 | DRG 380 ==
LOC: ER 13:52 → OVERFLOW 23:40 → EAST 09-02 08:49
PROVIDERS: ADMIT Internal Medicine; ATTEND Internal Medicine
DX: E11.628 Type 2 diabetes mellitus with other skin complications (principal); L97.522 Non-pressure chronic ulcer of other part of left foot with fat layer exposed; N17.0 Acute kidney failure with tubular necrosis; E11.621 Type 2 diabetes mellitus with foot ulcer; L03.116 Cellulitis of left lower limb; E11.22 Type 2 diabetes mellitus with diabetic chronic kidney disease; E11.319 Type 2 diabetes mellitus with unspecified diabetic retinopathy without macular edema; F03.90 Unspecified dementia, unspecified severity, without behavioral disturbance, psychotic disturbance, mood disturbance, and anxiety; E11.65 Type 2 diabetes mellitus with hyperglycemia; E78.5 Hyperlipidemia, unspecified; I12.9 Hypertensive chronic kidney disease with stage 1 through stage 4 chronic kidney disease, or unspecified chronic kidney disease; N18.9 Chronic kidney disease, unspecified; M13.872 Other specified arthritis, left ankle and foot; M10.9 Gout, unspecified; E04.1 Nontoxic single thyroid nodule; Z79.4 Long term (current) use of insulin; Z79.899 Other long term (current) drug therapy
CPT/HCPCS: 36415; 71046; 71250; 73700; 76536; 80048; 80053; 82962; 83735; 84439; 84443; 84481; 85025; 85610; 85730; 87081; 87205; 93926; 93971; 96361; 96365; G0378; J1815; J3490